=== PATIENT | female | born 1950 | race Caucasian/White ===

== ENCOUNTER 2019-02-10 13:32 | Emergency (ER) | payer MEDICAID ==
[~2019-02-10] VITALS: Ht 160 cm; Wt 78.2 kg
[~2019-02-10 13:32] MED LIST: AMBIEN12.5 MG PO; AMITIZA24 MCG PO; AMITIZA8 MCG PO; AMITRIPTYLINE50 MG PO; AMLODIPINE BESY1 CA1 PO; CARDI-OMEGA1000 MG PO; DITROPAN 5MG TAB5 MG PO; FOSAMAX PO; GABAPENTIN800 MG PO; LASIX20 MG PO; LEVAQUIN500 MG PO; LORATADINE10 MG PO; LOTREL PO; NAPROSYN500 MG PO; NEXIUM 40MG40 MG PO; NORCO 325 MG-101 TAB PO; NORCO 325 MG-51 TAB PO; OXYCODONE5 MG PO; OXYCONTIN30 MG PO; OXYCONTIN40 MG PO; PHENERGAN25 MG RC; PREDNISONE 5MG5 MG PO; PREDNISONE10 MG PO; PREMARIN0.45 MG PO; QUALITY CHOICE600 M1 PO; SAVELLA50 MG PO; SYNTHROID0.025 MG PO; TOPROL PO; VICODIN PO; ZANAFLEX4 M1 PO; ZETIA 10MG TAB10 MG PO; ZOFRAN ODT4 MG PO
[2019-02-10 13:43] VITALS: TEMP 99.3
[2019-02-10] MEDS ORDERED: ACTIGALL 300MG300 MG PO (13:55)
[2019-02-10 14:38] LABS: COLLECTION METHOD CLEAN CATCH
[2019-02-10 14:44] LABS: PH 6 (5-8); URINE APPEARANCE Clear; URINE BACTERIA None Seen /hpf; URINE BILIRUBIN Negative (NEGATIVE); URINE BLOOD 1+ (NEGATIVE); URINE COLOR Straw; URINE GLUCOSE Negative (NEGATIVE); URINE KETONE Negative (NEGATIVE); URINE LEUKOCYTE ESTERASE Negative (NEGATIVE); URINE NITRATE Negative (NEGATIVE); URINE PROTEIN(semi-quant) Negative (NEGATIVE); URINE RBC 0-2 /hpf; URINE UROBILINOGEN Negative (NEGATIVE)
[2019-02-10 14:46] LABS: STREP SCREEN NEGATIVE
[2019-02-10 16:48] LABS: BASO % 0.5 % (0.0-2.0); EOS # 0.1 (0.0-0.7); EOS % 1.5 % (0-4.0); GRAN # 6.8 (1.4-6.5); GRAN % 78.7 % (42.2-75.2); HEMATOCRIT 38.7 % (37.0-47.0); HEMOGLOBIN 12.5 g/dl (12.5-16.0); LYMPH % 11.9 % (20.0-51.0); MEAN CELL VOLUME 87 fl (80.0-100.0); MEAN CORPUSCULAR HEMOGLOBIN 28 pg (27.0-31.0); MEAN CORPUSCULAR HGB CONC 32 g/dl (33.0-37.0); MEAN PLATELET VOLUME 10.9 fl (7.4-10.4); MONO # 0.6 (0.1-0.6); MONO % 6.8 % (1.7-9.3); PLATELET COUNT 192 K/mm3 (130-400); RED BLOOD COUNT 4.47 M/mm3 (4.10-5.30)
[2019-02-10 17:02] LABS: ALBUMIN 4.3 gm/dL (3.5-5.0); BILIRUBIN,TOTAL 0.5 mg/dL (0.0-1.0); C-REACTIVE PROTEIN 4.3 mg/dL (0.0-0.9); CALCIUM 9.7 mg/dL (8.4-10.2); CREATININE, serum 0.84 (0.52-1.25); POTASSIUM 4.2 mmol/L (3.4-5.0); TOTAL PROTEIN 7.8 gm/dL (6.4-8.2)
[2019-02-10 17:35] VITALS: BP 133/74; PULSE 73
== END 2019-02-10 17:40 | disposition home or self-care (01) ==
LOC: COL.ER 13:32
PROVIDERS: Nurse Practitioner
DX: R05 Cough (principal); R10.9 Unspecified abdominal pain; M79.7 Fibromyalgia; G62.9 Polyneuropathy, unspecified
CPT/HCPCS: J1885